=== PATIENT | male | born 1995 | race African-American/Black ===

== ENCOUNTER 2021-04-24 04:59 | Emergency (ER) | payer OTHER ==
[~2021-04-24] VITALS: Ht 193 cm; Wt 81.7 kg
--- NOTE | ~2021-04-24 | EMS ---
[address] [address] EMS Patient Care Report Name: CLAY DE LUNA Room #: DEP Steve#: [id number] Admission: 04/24/21 Attend Phys: Discharge: 04/24/21 Date of : [birth year] Report #: [id number] THIS REPORT FOR: //name// Report Transmitted: 04/27/2021 12:35 EMS Care Summary [place], [place]/[facility] Incident [id number] @ 04/24/2021 04:12 Incident Location [address] [id number] Patient CLAY DE LUNA Male, 35 Years 1985-04-26 Patient Address [address] [place], [place] [id number] Patient History None Reported, Patient Allergies No known allergies, Patient Medications None Reported, Chief Complaint ALOC Disposition Transported No Lights/[facility] Dispatch Reason Sick Person Transported To [facility] Narrative Dispatched to an apartment community regards to a seizure. On arrival, I saw patient laying in the right lateral recumbent position on the sofa. Initial [address] [address] EMS Patient Care Report Name: CLAY DE LUNA Room #: DEP [facility]#: [id number] Admission: 04/24/21 Attend Phys: Discharge: 04/24/21 Date of : [birth year] Report #: [id number] assessment revealed that patient was GCS14 and did not appear to be in respiratory distress. Patient's chief complaint was ALOC. Bystander stated that patient began to gag, and shake a little before calling 911. Bystander could not detail a medical history of the patient or provide much information. Bystander did stated that patient had been consuming alcohol. Physical assessment revealed that patient was pink warm and dry. Patient was assisted down the stair outside the apartment to our cot. Patient was secured and lifted into the ambulance. Treatment rendered was obtaining a complete set of baseline vital signs including a blood glucose reading, and established vascular access with a saline lock. Patient was transported to [facility] and radio report was given en route. Arrived at destination and patient care was transferred. Initial Vitals @04:42P: 56,R: 16,BP: 134/70,Pain: 0/10,GCS: 14,CO: 1,SpO2: 98,Revised Trauma: 12, @04:36P: 68,R: 16,BP: 145/91,Pain: 0/10,GCS: 14,Glucose: 96,SpO2: 96,Revised Trauma: 12, Assessments @04:45MENTAL:Person Oriented,Place Oriented,SKIN:HEENT:LUNG SOUNDS:ABDOMEN:PELVIS//GI:EXTREMITIES:PULSE:NEURO:No Abnormalities, Impression Altered Mental Status Procedures @04:44ALS AssessmentResponse: UnchangedSucceeded@04:44Saline Lock 10cc (20 ga) Site: Forearm-LeftResponse: UnchangedSucceeded Timeline 04:11,Call Received 04:11,Dispatch Notified 04:12,Dispatched 04:15,En Route 04:21,On Scene 04:22,At Patient 04:36,BP: 145/91 M,PULSE: 68,RR: 16 R,SPO2: 96 Ox,ETCO2: ,B,PAIN: 0,GCS: 14, 04:42,BP: 134/70 M,PULSE: 56,RR: 16 R,SPO2: 98 Ox,ETCO2: ,BG: ,PAIN: 0,GCS: 14, 04:43,Depart Scene 04:44,ALS Assessment,Response: UnchangedSucceeded, 04:44,Saline Lock 10cc 20 ga Site: Forearm-Left,Response: UnchangedSucceeded, 04:50,At Destination 05:10,Call Closed [facility] [address] [place] [address] EMS Patient Care Report Name: CLAY DE LUNA Room #: DEP Steve#: [id number] Admission: 04/24/21 Attend Phys: Discharge: 04/24/21 Date of : [birth year] Report #: [id number] Disclaimer [email or web address] Copyright 2020 [employer] This EMS Care Summary contains data elements from the applicable legal record (which may be displayed differently). It is designed to provide pertinent information for the following purposes: continuity of care, clinical quality, and state data reporting. The complete legal record is available to ED staff and administrators of the receiving hospital in [facility]'s Patient Tracker. All data is provided "as is."
[2021-04-24] MEDS ORDERED: NOHOMEMEDICATIONS (05:16)
[2021-04-24 05:27] LABS: ABSOLUTE NEUTROPHILS 5.8 thou/uL (1.4-8.2); BASOPHILS 0.4 % (0.0-2.0); EOSINOPHILS 0.8 % (0.0-3.0); HEMATOCRIT 42.8 % (42.0-52.0); HEMOGLOBIN 13.7 gm/dL (14.0-18.0); LYMPHOCYTES 15.9 % (24.0-44.0); MCHC 32.1 g/dL (28.0-37.0); MCV 84.1 fL (80.0-100.0); MONOCYTES 9.1 % (1.0-8.0); PLATELET COUNT 136 thou/uL (150-400); POLYS 73.8 % (36.0-66.0); RBC 5.09 mil/uL (4.50-6.00); RDW 12.7 % (10.5-14.5); WBC 7.8 thou/uL (4.0-11.0)
[2021-04-24 05:30] LABS: CALCIUM 8.7 mg/dL (8.5-10.1); CREATININE 0.9 mg/dL (0.7-1.3); POTASSIUM 3.9 mmol/L (3.5-5.1)
[2021-04-24 05:36] LABS: ALBUMIN 3.9 g/dL (3.4-5.0); TOTAL BILIRUBIN 0.3 mg/dL (0.2-1.0); TOTAL PROTEIN 7.1 g/dL (6.4-8.2)
[2021-04-24] MEDS ORDERED: KEPPRA XR500 MG PO (06:25)
--- NOTE | 2021-04-24 07:35 | EKG ---
[address] [place] [address] ELECTROCARDIOGRAM REPORT Name: DE LUNACLAY D Room #: REG [facility]#: [id number] Admission: 04/24/21 Attend Phys: Discharge: Date of : [birth year] Report #: [id number] [facility] ED Test Date: 2021-04-24 Test Time: 05:35:53 Pat Name: CLAY DE LUNA Department: Room: Gender: M [employer]ist: [employer] : 1995 Requested By: Rich Cueto Order Number: [id number] MD: Emeka Bahena Measurements Intervals [place] Rate: 45 P: 44 MI: 156 QRS: 54 QRSD: 85 T: 24 QT: 431 QTc: 373 Interpretive Statements Sinus bradycardia Atrial premature complex Probable left atrial enlargement Abnormal Q's V1-2 No previous ECG available for comparison Electronically Signed On 04-24-2021 7:35:48 CDT by Emeka Bahena [email or web address] <ELECTRONICALLY SIGNED> By: Emeka Bahena MD, [facility] 04/24/21 0735 0535 0535 Emeka Bahena MD, FACC /EPI
[2021-04-24 07:44] VITALS: BP 108/60
== END 2021-04-24 07:44 | disposition home or self-care (01) ==
LOC: ER 04:59
PROVIDERS: Emergency Medicine
DX: R56.9 Unspecified convulsions (principal); M25.561 Pain in right knee; M25.562 Pain in left knee; R19.7 Diarrhea, unspecified